=== PATIENT | female | born 1950 | race Caucasian/White ===

== ENCOUNTER 2018-05-10 16:15 | Outpatient (CLI) | payer BC, MEDICARE ==
--- NOTE | 2018-05-11 08:03 | XRAY Report ---
Procedure Date: 05/10/2018 Accession Number: [id number] / [id number] Procedure: XR - Foot 3 View RT CPT Code: FULL RESULT: EXAM: Foot 3 View RT DATE: 05/10/2018 4:33 PM CLINICAL HISTORY: CHRONIC RT FOOT PAIN,LOCATION 2-3-4 MP JOINTS COMPARISON: None. TECHNIQUE: 3 views. FINDINGS: Bones: There is made of a bipartite sesamoid bone and soft tissue calcification about the distal head of the fifth metatarsal. No fracture is identified. Joints: Normal. No subluxations. Soft Tissues: Normal. No soft tissue swelling. IMPRESSION: Bipartite sesamoid, most often asymptomatic but can be associated with pain in the region of the ball of foot. Soft tissue calcification in the region of the distal head of the fifth metatarsal is nonspecific but could represent early calcium deposition disease. RADIA
== END 2018-05-10 16:16 | disposition home or self-care (01) ==
LOC: DI 16:15
PROVIDERS: ATTEND Podiatrist
DX: M25.571 Pain in right ankle and joints of right foot (principal)

== ENCOUNTER 2019-02-03 14:33 | Outpatient (CLI) | payer MEDICARE, BC ==
--- NOTE | 2019-02-03 16:34 | Mammography Report ---
Reason: SCREENING MAMMO Procedure Date: 02/03/2019 Accession Number: [id number] / [id number] Procedure: [facility] - Screening Mammo w/Benoit CPT Code: FULL RESULT: EXAM: Screening Mammo w/Benoit DATE: 02/03/2019 3:10 PM CLINICAL HISTORY: Routine screening TECHNIQUE: (B) - Bilateral CC and MLO views were obtained. COMPARISON: 10/25/2014, 10/03/2013, 09/29/2012, and 08/18/2011. PARENCHYMAL PATTERN: (A) - The breasts demonstrate scattered fibroglandular densities bilaterally. FINDINGS: There is no significant interval change. There are no suspicious masses, calcifications, or areas of distortion. IMPRESSION: Negative examination. BI-RADS category 1. RECOMMENDATION: (ANNUAL) - Recommend routine annual screening mammography. BI-RADS CATEGORY: (1) - Negative. STANDARD QUALIFYING STATEMENTS: 1. This examination was not reviewed with the aid of Computer-Aided Detection (CAD). 2. A negative or benign imaging report should not preclude biopsy if clinically suspicious findings are present. 3. Dense breasts may obscure an underlying neoplasm. 4. This examination was reviewed with the aid of 3D breast imaging (tomosynthesis).
== END 2019-02-03 14:34 | disposition home or self-care (01) ==
LOC: DI 14:33
PROVIDERS: ATTEND Family Medicine
DX: Z12.31 Encounter for screening mammogram for malignant neoplasm of breast (principal)
CPT/HCPCS: 77063; 77067